=== PATIENT | female | born 1965 | race Caucasian/White ===

== ENCOUNTER 2021-01-07 12:46 | Outpatient (CLI) | payer MEDICARE, SELFPAY ==
--- NOTE | 2021-01-07 12:45 | RT.EKG_ITS ---
APPROVED REPORT Exam: Resting ECG Reason for Exam: New Patient with hypertension and cardiomyopathy Patient Location: O HR:64 bpm ECG Measurements Heart Rate 64 AXIS PA 141 P 52 QRSd 102 QRS 15 QT 434 T 79 QTc 448 Conclusion Sinus rhythm...normal P axis, V-rate 50- 99 Nonspecific repol abnormality, lateral leads...ST dep, T neg, I aVL V5 V6
== END 2021-01-07 12:47 | disposition home or self-care (01) ==
LOC: DI.CARD 12:50
PROVIDERS: Visit Provider Internal Medicine Cardiovascular Disease
DX: I42.9 Cardiomyopathy, unspecified (principal)
CPT/HCPCS: 93010

== ENCOUNTER → 2021-01-07 12:46 | Outpatient (BNVA) | payer OTHER, SELFPAY | PROVIDERS: Visit Provider Internal Medicine Cardiovascular Disease | DX: I42.2 Other hypertrophic cardiomyopathy (principal); G47.33 Obstructive sleep apnea (adult) (pediatric); J99 Respiratory disorders in diseases classified elsewhere; I27.20 Pulmonary hypertension, unspecified; R07.89 Other chest pain | CPT/HCPCS: 93005; 99203 ==